=== PATIENT | female | born 1950 | race Caucasian/White ===

== ENCOUNTER 2022-06-06 10:44 | Emergency (ER) | payer OTHER ==
[~2022-06-06] VITALS: Ht 152.4 cm; Wt 50.0 kg
[2022-06-06 18:00] VITALS: BP 130/76
== END 2022-06-06 18:15 | disposition home or self-care (01) ==
LOC: EMS 11:01
DX: S32.511A Fracture of superior rim of right pubis, initial encounter for closed fracture (principal); W19.XXXA Unspecified fall, initial encounter; Y93.E9 Activity, other interior property and clothing maintenance; Y92.009 Unspecified place in unspecified non-institutional (private) residence as the place of occurrence of the external cause; Y99.8 Other external cause status
CPT/HCPCS: 73502; 99285